=== PATIENT | female | born 1990 | race Caucasian/White ===

== ENCOUNTER 2020-09-05 20:42 | Emergency (ER) | payer OTHER ==
[~2020-09-05] VITALS: Ht 172.7 cm; Wt 77.3 kg
[~2020-09-05 20:42] MED LIST: ALBU8.5H3 IH; CEPH500C3 PO; NIFE10 PO; PREN-217 PO
[2020-09-05] MEDS ORDERED: BUPR1FIL7 SL (20:50)
[2020-09-05 20:52] VITALS: BP 120/74
== END 2020-09-05 21:30 | disposition left against medical advice (07) ==
LOC: EMS 20:42
DX: L02.416 Cutaneous abscess of left lower limb (principal); Z53.21 Procedure and treatment not carried out due to patient leaving prior to being seen by health care provider

== ENCOUNTER 2021-04-09 01:57 | Emergency (ER) | payer OTHER ==
[~2021-04-09] VITALS: Ht 170.2 cm; Wt 72.0 kg
[~2021-04-09 01:57] MED LIST changes: +BUPR1FIL7 SL
[2021-04-09] MEDS: OXYTOCIN 20 UNITS/LACT RINGERS 1,000 ML IV ONE (02:30)
[2021-04-09] MEDS: TERBUTALINE SULFATE 1 MG/ML VIAL SQ ONE (03:00)
[2021-04-09 03:13] VITALS: BP 141/90
[2021-04-09] MEDS: RINGERS SOLUTION,LACTATED 1,000 ML IV ONE (03:15)
== END 2021-04-09 05:15 | disposition short-term general hospital (02) ==
LOC: EMS 01:58
DX: O26.893 Other specified pregnancy related conditions, third trimester (principal); R10.9 Unspecified abdominal pain; F41.9 Anxiety disorder, unspecified; J45.909 Unspecified asthma, uncomplicated; Z79.899 Other long term (current) drug therapy; Z3A.41 41 weeks gestation of pregnancy
CPT/HCPCS: 96360; 96361; 99285; G0238; Q9967; J3105